=== PATIENT | female | born 1990 | race Caucasian/White ===

== ENCOUNTER 2022-01-20 15:07 | Emergency (ER) | payer BC ==
[2022-01-20] MEDS ORDERED: Famotidine 20 MG TAB ONE (15:57)
[2022-01-20] MEDS ORDERED: predniSONE 20 MG TAB ONE (15:58)
== END 2022-01-20 16:19 | disposition home or self-care (01) ==
LOC: CSHERS 15:07
DX: L50.0 Allergic urticaria (principal)
CPT/HCPCS: 99283; J7512; J7620